=== PATIENT | female | born 1970 | race Caucasian/White ===

== ENCOUNTER 2024-04-17 05:54 | Inpatient (IN) | payer BC ==
[2024-04-09 16:08] VITALS: BMI 39.6
[2024-04-17] MEDS ORDERED: Heparin 5,000 UNITS/ML VIAL ONE (06:24)
[2024-04-17] MEDS ORDERED: Bupivacaine 0.25% HCL 30 ML VIAL ONE (06:40)
[2024-04-17] MEDS ORDERED: EPINEPHrine 1 MG/ML VIAL ONE (06:40)
[2024-04-17] MEDS ORDERED: Propofol 500 MG/50 ML VIAL ONE (06:55)
[2024-04-17] MEDS ORDERED: fentaNYL PF 100 MCG/2 ML SYRINGE ONE (06:57)
[2024-04-17] MEDS ORDERED: PROPOFOL 20 ML ONE (06:57)
[2024-04-17] MEDS ORDERED: Lidocaine 1% PF 5 ML VIAL ONE (07:05)
[2024-04-17] MEDS ORDERED: Rocuronium Bromide 10 MG/ML (10ML VIAL) ONE (07:05)
[2024-04-17] MEDS ORDERED: Sodium Chloride 0.9% 100 ML ONE (07:32)
[2024-04-17] MEDS ORDERED: CEFAZOLIN 2 GM VIAL ONE (07:32)
[2024-04-17] MEDS ORDERED: Lidocaine 2% 6 ML (Jelly) SYR ONE (07:38)
[2024-04-17] MEDS ORDERED: Dexamethasone 20 MG/5 ML VIAL ONE (07:52)
[2024-04-17] MEDS ORDERED: Ondansetron PF 4 MG/2 ML Vial ONE (07:52)
[2024-04-17] MEDS ORDERED: ePHEDrine Sulfate 50 MG/10 ML VIAL ONE (07:53)
[2024-04-17] MEDS ORDERED: Dexmedetomidine 200 MCG/2 ML VIAL ONE (07:54)
[2024-04-17] MEDS ORDERED: Promethazine HCl 25 MG/ML VIAL IM PRN ×3 (08:20→11:03)
[2024-04-17] MEDS ORDERED: Ondansetron PF 4 MG/2 ML Vial IVP PRN (08:20)
[2024-04-17] MEDS ORDERED: diphenhydrAMINE 50 MG/ML VIAL IVP PRN ×2 (08:20→11:03)
[2024-04-17] MEDS ORDERED: Ondansetron HCl/PF 4 MG/2 ML Vial IVP PRN (08:20)
[2024-04-17] MEDS ORDERED: diphenhydrAMINE 25 MG CAP PO PRN (08:20)
[2024-04-17] MEDS ORDERED: FENTANYL 500 MCG/10 ML VIAL 2,000 MCG in Sodium Chloride 0.9% 60 ML IV PRN (08:20)
[2024-04-17] MEDS ORDERED: Ketorolac Tromethamine 30 MG (1 mL) VIAL ONE (08:20)
[2024-04-17] MEDS ORDERED: diphenhydrAMINE 50 MG/ML VIAL IM PRN (08:20)
[2024-04-17] MEDS ORDERED: Naloxone HCl 0.4 mg/ml Vial IV PRN (08:20)
[2024-04-17] MEDS ORDERED: Communication Order-Pharmacy FS SCH (08:30)
[2024-04-17] MEDS ORDERED: SUGAMMADEX SODIUM 200 MG/2 ML VIAL ONE (08:32)
[2024-04-17] MEDS ORDERED: fentaNYL 50 mcg/mL 1 mL Vial ONE (08:36)
[2024-04-17] MEDS ORDERED: Promethazine HCl 25 MG/ML VIAL ONE (09:53)
[2024-04-17] MEDS ORDERED: Glucagon 1 MG/ML KIT IM PRN (11:03)
[2024-04-17] MEDS ORDERED: Ipratropium/Albuterol 3 ML NEB NEB PRN (11:03)
[2024-04-17] MEDS ORDERED: Dextrose 50% Abboject 50 ML SYRINGE SLOW IVP PRN (11:03)
[2024-04-17] MEDS ORDERED: Ketorolac Tromethamine 30 MG (1 mL) VIAL IVP PRN (11:03)
[2024-04-17] MEDS ORDERED: Dextrose 5% in Water 1,000 ML IV PRN (11:03)
[2024-04-17] MEDS ORDERED: Hydrocodone-Acetamin 15 ML UDCUP PO PRN (11:03)
[2024-04-17] MEDS: D5 1/2 NS w/20 mEq KCL 1,000 ML IV SCH (11:29)
[2024-04-17] MEDS: Pantoprazole 40 MG VIAL IVP SCH (11:29)
[2024-04-17] MEDS: Levothyroxine Sodium 100 MCG TAB PO SCH (11:29)
[2024-04-17] MEDS: Ondansetron PF 4 MG/2 ML Vial IVP PRN (21:43)
[2024-04-18] MEDS: Levothyroxine Sodium 100 MCG TAB PO SCH (06:01)
[2024-04-18 06:02] LABS: #Basophils 0.03 10x3/uL (0.0-0.2); #Eosinphils Less than 0.03 10x3/uL (0.0-0.7); %Basophils 0.2 % (0.0-1.0); %Eosinophils 0.1 % (0.0-10.0); %Neutrophils 68.4 % (42.0-75.0); Hematocrit 38.4 % (36.0-47.0); Hemoglobin 12.8 g/dL (12.0-16.0); Mean Corpuscular HGB CONC 33.3 g/dL (32.0-36.0); Mean Corpuscular Hemoglobin 30.5 pg (27.0-31.0); Mean Corpuscular Volume 91.4 fL (78.0-98.0); Mean Platelet Volume 10.1 fL (7.4-10.4); Platelet Count 322 10x3/uL (130-400); RBC Distribution Width 13.5 % (11.5-14.5)
[2024-04-18 06:12] LABS: Anion Gap 13 mmol/L (10-20); BUN (Urea Nitrogen) 7 mg/dL (9.8-20.1); Calc. Creatinine Clearance 135 mL/min (70-130); Calcium 9.6 mg/dL (7.8-10.44); Carbon Dioxide 24 mmol/L (22-29); Chloride 103 mmol/L (98-107); Estimated GFR 91; Glucose 129 mg/dL (70-105); Sodium 136 mmol/L (136-145)
[2024-04-18] MEDS: Enoxaparin 40 MG (0.4 mL) SYRINGE SC SCH ×2 (07:28→07:47)
[2024-04-18] MEDS ORDERED: Hydrocodone-Acetamin 15 ML UDCUP PO PRN (07:39)
[2024-04-18] MEDS: Pantoprazole 40 MG VIAL IVP SCH (09:53)
[2024-04-18] MEDS: hydrALAZINE 20 MG/ML VIAL SLOW IVP PRN (11:20)
[2024-04-18 11:59] VITALS: BP 174/96; TEMP 98.2
== END 2024-04-18 12:40 | disposition home or self-care (01) | DRG 621 ==
LOC: SDC 05:54 → SJJU 10:42
PROVIDERS: ADMIT Surgery; ATTEND Surgery
PROC: 0DB64Z3 Excision of Stomach, Percutaneous Endoscopic Approach, Vertical (ICD-10-PCS; principal; 2024-04-17)
PROC: 8E0W4CZ Robotic Assisted Procedure of Trunk Region, Percutaneous Endoscopic Approach (ICD-10-PCS; 2024-04-17)
PROC: 3E033XZ Introduction of Vasopressor into Peripheral Vein, Percutaneous Approach (ICD-10-PCS; 2024-04-17)
DX: E66.01 Morbid (severe) obesity due to excess calories (principal); Z68.41 Body mass index [BMI] 40.0-44.9, adult; Z88.5 Allergy status to narcotic agent; Z91.040 Latex allergy status
CPT/HCPCS: 36415; 80048; 85025; 88307; 88342; 93005; 93010; C9113; J0171; J0360; J0665; J1100; J1644; J1650; J1885; J2405; J2550; J2704; J3010; J3480; J3490